=== PATIENT | male | born 2005 | race Caucasian/White ===

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

== ENCOUNTER → 2023-08-11 | Emergency (ER) | payer SELFPAY ==
[~2023-08-11] MED LIST: AMOX/K CLAV 875 MG TAB ONE
--- OUTSIDE RECORDS SUMMARY | 2023-08-11 20:32 | XMS REPORT | Continuity of Care Document ---
Author Name Unknown Address [address] [place] [address] [facility] Address [address] [place] [address] [address] [place] [address] Care Team Providers Care Pipe And Boiler Covers Supervisor Name Role Phone Unavailable Unavailable Unavailable Encounters Start Date/Time End Date/Time Encounter Type Admission Type Attending Clinicians Care Facility Care Department Encounter ID Source 2022-12-04 13:38:36 2022-12-04 13:38:36 Outpatient [facility] [id number] Olivier Youssef
--- NOTE | 2023-08-11 21:06 | EDPHYS ---
Physician Documentation [facility] Name: Barry Berg Age: 17 yrs Sex: Male : 2005 Arrival Date: 08/11/2023 Time: 20:23 Bed DIS2 Private MD: ED Physician Amandeep Griggs HPI: 08/11 21:17 This 17 yrs old Male presents to ER via Ambulatory with complaints of Flu Symptoms, kb Fever, Cough. 21:18 Patient is a 17-year-old male who presents for sore throat, body aches and chills that kb started a few days ago. Denies cough and congestion.. Historical: - Allergies: 20:53 shrimp; tl4 - Home Meds: 20:53 None [Active]; tl4 - PMHx: 20:53 None; tl4 - PSHx: 20:53 None; tl4 - Immunization history:: Adult Immunizations up to date. - Social history:: Smoking status: Reported history of juuling and/or vaping. ROS: 21:16 Respiratory: Negative for shortness of breath, cough, wheezing, and pleuritic chest kb pain, 21:16 Constitutional: Positive for body aches, chills, malaise, 21:16 ENT: Positive for sore throat, 21:16 All other systems are negative, Exam: 21:16 Constitutional: This is a well developed, well nourished patient who is awake, alert, kb and in no acute distress. Head/Face: Normocephalic, atraumatic. Cardiovascular: Regular rate Respiratory: Respirations even and unlabored. No increased work of breathing. Talking in full sentences Skin: Warm, dry with normal turgor. Normal color. MS/ Extremity: Pulses equal, no cyanosis. Neurovascular intact. Full, normal range of motion. Neuro: Awake and alert, GCS 15, oriented to person, place, time, and situation. Moves all extremities. Normal gait. 21:16 ENT: Posterior pharynx: Tonsils: bilaterally enlarged, with erythema, Vital Signs: 20:51 BP 135 / 76; Pulse 90; Resp 18; Temp 98.9(O); Pulse Ox 100% on R/A; Weight 93.44 kg; tl4 Height 6 ft. 1 in. ; Pain 8/10; 22:11 BP 122 / 71; Pulse 88; Resp 18; Pulse Ox 99% on R/A; tl4 20:51 Body Mass Index 27.18 (93.44 kg, 185.42 cm) - Percentile 86.6 % tl4 20:51 Pain Scale: Adult tl4 MDM: 20:42 Patient medically screened. kb 21:17 Data reviewed: vital signs, nurses notes. kb 21:17 Differential diagnosis: group A strep tonsillitis, laryngitis, peritonsillar abscess kb pharyngitis, tonsillitis. Test considered but Not performed: Labs: strep, flu and covid tests considered but results would not change course of treatment. Counseling: I had a detailed discussion with the patient and/or guardian regarding the historical points, exam findings, and any diagnostic results supporting the discharge/admit diagnosis, the need for outpatient follow up, a family practitioner, to return to the emergency department if symptoms worsen or persist or if there are any questions or concerns that arise at home. Administered Medications: 22:12 Drug: Amoxicillin-Clavulanate PO 875 mg PO once Route: PO; tl4 22:12 Follow up: Response: No adverse reaction tl4 Disposition: 08/12 00:40 Co-signature as Attending Physician, Amandeep Griggs MD I agree with the assessment sp4 and plan of care. I reviewed the patient's care provided by the Advanced Practice Provider and agree with the diagnosis and treatment plan. Disposition Summary: 08/11/23 21:05 Discharge Ordered Notes: Location: Home kb Condition: Stable kb Diagnosis - Acute tonsillitis, unspecified kb Followup: kb - With: Emergency Department - When: As needed - Reason: Worsening of condition Followup: kb - With: Private Physician - When: 2 - 3 days - Reason: Recheck today's complaints, Continuance of care, Re-evaluation by your physician Discharge Instructions: - Discharge Summary Sheet kb - Tonsillitis, [id number] kb Forms: - Medication Reconciliation Form kb - Thank You Letter kb - Antibiotic Education kb - Prescription Opioid Use kb - Patient Portal Instructions kb - Leadership Thank You Letter kb Prescriptions: - Augmentin 875-125 mg Oral Tablet - take 1 tablet ORAL route every 12 hours for 10 days; 20 tablet; Refills: 0, kb Product Selection Permitted Signatures: Cordelia Orellana FNP-C FNP-Ckb Potepalov, Amandeep, MD MD sp4 Logdahl, Ernesto tl4
--- NOTE | 2023-08-11 21:06 | ER ---
Nurse's Notes [facility] – [place], [place] Name: Barry Berg Age: 17 yrs Sex: Male : 2005 Arrival Date: 08/11/2023 Time: 20:23 Bed DIS2 Private MD: Diagnosis: Acute tonsillitis, unspecified Presentation: 08/11 20:51 Chief complaint: Patient states: Pt c/o sore throat x 2-3 days that is getting worse. tl4 Pt states he developed generalized body aches and chills today. Coronavirus screen: chills, muscle pain, sore throat. Ebola Screen: No symptoms or risks identified at this time. Initial Sepsis Screen: Does the patient meet any 2 criteria? No. Patient's initial sepsis screen is negative. Does the patient have a suspected source of infection? No. Patient's initial sepsis screen is negative. Risk Assessment: Do you want to hurt yourself or someone else? Patient reports no desire to harm self or others. Onset of symptoms was August 08, 2023. 20:51 Method Of Arrival: Ambulatory tl4 20:51 Acuity: ANGELIQUE 4 tl4 Triage Assessment: 20:53 General: Appears in no apparent distress. Behavior is calm, cooperative. Pain: tl4 Complains of pain in neck. EENT: Reports pain in throat. Neuro: No deficits noted. Cardiovascular: No deficits noted. Denies chest pain. Respiratory: No deficits noted. Denies cough, shortness of breath. GI: No deficits noted. No signs and/or symptoms were reported involving the gastrointestinal system. : No deficits noted. No signs and/or symptoms were reported regarding the genitourinary system. Historical: - Allergies: 20:53 shrimp; tl4 - Home Meds: 20:53 None [Active]; tl4 - PMHx: 20:53 None; tl4 - PSHx: 20:53 None; tl4 - Immunization history:: Adult Immunizations up to date. - Social history:: Smoking status: Reported history of juuling and/or vaping. Screenin:11 [facility] ED Fall Risk Assessment (Adult) History of falling in the last 3 months, tl4 including since admission No falls in past 3 months (0 pts) Confusion or Disorientation No (0 pts) Intoxicated or Sedated No (0 pts) Impaired Gait No (0 pts) Mobility Assist Device Used No (0 pt) Altered Elimination No (0 pt) Score/Fall Risk Level 0 - 2 = Low Risk. Abuse screen: Denies threats or abuse. Denies injuries from another. Nutritional screening: No deficits noted. Tuberculosis screening: No symptoms or risk factors identified. Assessment: 22:11 Reassessment: No changes from previously documented assessment. Patient and/or family tl4 updated on plan of care and expected duration. Pain level reassessed. Patient is alert, oriented x 3, equal unlabored respirations, skin warm/dry/pink. Vital Signs: 20:51 BP 135 / 76; Pulse 90; Resp 18; Temp 98.9(O); Pulse Ox 100% on R/A; Weight 93.44 kg; tl4 Height 6 ft. 1 in. ; Pain 8/10; 22:11 BP 122 / 71; Pulse 88; Resp 18; Pulse Ox 99% on R/A; tl4 20:51 Body Mass Index 27.18 (93.44 kg, 185.42 cm) - Percentile 86.6 % tl4 20:51 Pain Scale: Adult tl4 ED Course: 20:34 Patient arrived in ED. gm2 20:42 Cordelia Orellana, AMIE is [facility]. kb 20:42 Keny Pardo MD is Attending Physician. kb 20:42 Amandeep Griggs MD is Attending Physician. kb 20:53 Triage completed. tl4 20:55 Arm band placed on right wrist. tl4 22:12 Patient has correct armband on for positive identification. Provided Education on: ed tl4 process. 22:12 No provider procedures requiring assistance completed. Patient did not have IV access tl4 during this emergency room visit. Administered Medications: 22:12 Drug: Amoxicillin-Clavulanate PO 875 mg PO once Route: PO; tl4 22:12 Follow up: Response: No adverse reaction tl4 Medication: 22:11 VIS not applicable for this client. tl4 Outcome: 21:05 Discharge ordered by . kb 22:12 Discharged to home ambulatory, with family, tl4 22:12 Condition: good 22:12 Discharge instructions given to patient, family, Instructed on discharge instructions, follow up and referral plans. medication usage, Demonstrated understanding of instructions, follow-up care, medications, 22:13 Patient left the ED. tl4 Signatures: Cordelia Orellana, FURNACE ATTENDANT-C FURNACE ATTENDANT-Ckb Flavia Morse gm2 Ernesto Conti tl4
[2023-08-12 11:02] VITALS: BP 122/71; TEMP 98.9; O2SAT 99
== END ==
LOC: ER 20:23
DX: J03.90 Acute tonsillitis, unspecified (principal)